=== PATIENT | male | born 1940 | race Caucasian/White ===

== ENCOUNTER 2016-10-10 11:30 | Inpatient (IN) ==
[2016-10-10 12:32] LABS: Basophils # 0.1 10*3/uL (0.0-0.2); Basophils % 1.2 % (0.0-0.8); Eosinophils # 0.3 10*3/uL (0.0-0.87); Eosinophils % 2.8 % (0.00-10.9); Hematocrit 38.8 VOL% (42.0-52.0); Hemoglobin 13.6 GM/DL (14.0-18.0); Immature Granulocytes % 0.4 %; Immature Granulocytes Absolute 0.04 #; Lymphocytes # 1.8 10*3/uL (1.4-4.0); Lymphocytes % 17.3 % (21.2-54.2); Mean Corpuscular HGB Conc 35.1 GM/DL (32-36); Mean Corpuscular Hemoglobin 38 PG (27-34); Mean Corpuscular Volume 107.5 FL (87-102); Mean Platelet Volume 10.4 FL (9.6-12.0); Monocytes # 1.4 10*3/uL (0.11-0.8); Monocytes % 13.1 % (1.7-12.7); Neutrophils # 6.8 10*3/uL (1.4-7.4); Neutrophils % 65.2 % (38.7-73.9); Platelet Count 269 T/CUMM (130-400); Red Blood Count 3.61 MC/CUMM (3.8-5.5); Red Cell Distribution Width 15.6 % (9.3-17.3); White Blood Count 10.4 T/CUMM (4-12)
--- NOTE | 2016-10-10 12:33 | Emergency Department Note ---
Arrival - Arrival Chief Complaint: Urogenital - Male Stated Complaint: SOB,jaundice ED Nursing Triage Note: pt ambulatory to triage with c/o having dark brown urine and jaundice skin color. pt was sent over from [facility] office to get checked out. 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 Mode of Arrival: Ambulatory Limitations: No Limitations Source: Patient Time Seen by Provider: 10/10/16 12:23 - History of Present Illness HPI Narrative: This is a 76-year-old white male who is complaining of having dark colored urine and a change in skin color for approximately 4 weeks. The patient admits to a long history of alcohol use. He also states that his abdomen is more swollen than usual. He denies any fevers, dysuria, nausea/vomiting/diarrhea or any pain. Onset (ago): week(s) Consistency: constant (4) Severity: moderate Allergies/Adverse Reactions: Allergies Allergy/AdvReac Type Severity Reaction Status Date / Time No Known Allergies Allergy Verified 10/10/16 11:42 Home Medications: Home Medications Medication Instructions Recorded Confirmed Type Aspirin [Ecotrin] 81 mg PO DAILY 08/09/15 08/09/15 History Carvedilol Cr [Coreg CR] 10 mg PO DAILY 08/09/15 08/09/15 History Dronedarone [Multaq] 400 mg PO BID 08/09/15 08/09/15 History Lipase/Protease/Amylase [Creon 12,000 unit PO TID 08/09/15 08/09/15 History 12,000 Units] Omeprazole [Prilosec] 20 mg PO DAILY 08/09/15 08/09/15 History Simethicone [Gas-X] 125 mg PO BID 08/09/15 08/09/15 History Topiramate 25 mg PO BID 08/09/15 08/09/15 History Review of System - Review of System 12 point system: reviewed and no additional remarkable complaints except as stated - Review of System Constitutional: Present: as per HPI. Absent: fever Eyes: Present: as per HPI Gastrointestinal: Present: as per HPI Skin: Present: as per HPI Medical,Surgical,& Family Hx - Medical History Cardio: History of: Cardiac Dysrhythmia (irregular heart beat), Hypertension - Surgical History Abdominal Surgeries: Surgical HX of: Abdominal Surgery (benign pancreatic cyst removed) Orthopedic Surgeries: Surgical HX of;: Total Hip Replacement (left) - Social History Smoking Status: Former smoker Frequency of Alcohol Use: Frequently Type of Drug Use: None Exam Physical Examination: - General General appearance: [alert, in moderate distress] - Head Head exam: [Present: atraumatic, normocephalic, normal inspection] - Eye Eye exam: [Present: Bilateral icteric sclera, PERRL, EOMI] - ENT ENT exam: [Present: normal exam, normal oropharynx, mucous membranes moist, TM' s normal bilaterally, normal external ear exam] - Neck Neck exam: [Present: normal inspection, full ROM, trachea midline] - Chest Chest inspection: [Present: normal inspection, symmetric chest wall rise] - Respiratory Respiratory exam: [Present: normal lung sounds bilaterally] - Cardiovascular Cardiovascular exam: [Present: regular rate, normal rhythm, normal heart sounds] - Abdominal Exam Abdominal exam: [Present: soft, normal bowel sounds] - Extremities Exam Extremities exam: [Present: normal inspection, full ROM] - Back Exam Back exam: [Present: normal inspection, full ROM] - Neurological Exam Neurological exam: [Present: alert, oriented X3] - Psychiatric Psychiatric exam: [Present: normal affect, normal mood] - Skin Skin exam: [Present: warm, dry, intact, mild to moderate jaundice] Vital Signs: Vital Signs Temperature 98.1 F 10/10/16 12:06 Pulse Rate 73 10/10/16 13:40 Respiratory Rate 18 10/10/16 13:40 Blood Pressure 137/75 10/10/16 13:40 O2 Sat by Pulse Oximetry 96 10/10/16 11:39 Course - Reevaluation(s) Reevaluation #1: Alejandra from hospitalist services is here to see the patient Time: 15:30 - Consultations Consultation #1: I spoke with Alejandra and hospitalist services, they will be down to see the patient in nonurgent. Time: 14:29 Results - Labs CBC & BMP: 10/10/16 12:18 10/10/16 12:18 Lab Results: I have reviewed the patients labs - Diagnostic Findings Procedure: CT Abdomen and Pelvis: image reviewed by me, report reviewed by me ( Moderate ascites noted in the abdomen) Disposition Clinical Impression: Ascites, Jaundice Case discussed with: patient Disposition: Still a Patient Condition: Stable Time of Disposition: 16:18
[2016-10-10 12:48] LABS: Lactic Acid 2.8 MMOL/L (0.4-2.0)
[2016-10-10 12:58] LABS: Apearance,Urine CLOUDY (Clear); Blood, Urine Negative (Negative); Glucose,Urine (UA) 50 mg/dL (Negative); Ketones,Urine Negative (Negative); Mucus,Urine Moderate /LPF (Occasional); Nitrite,Urine Negative (Negative); Protein,Urine 30 MG/DL; Squamous Epithelial Cell,Urine Occasional /HPF (0-10); Urine Color Amber (Yellow); WBC,Urine 30 /HPF (0-6)
[2016-10-10 13:00] LABS: Bilirubin,Urine Moderate mg/dL (Negative)
[2016-10-10 13:05] LABS: Alanine Aminotransferase 43 U/L (16-61); Albumin 1.8 G/DL (3.4-5.0); Alkaline Phosphatase 123 U/L (45-117); Aspartate Amino Transferase 104 U/L (0-37); Blood Urea Nitrogen 9 MG/DL (7-18); Calcium 8.8 MG/DL (8.5-10.1); Glucose 124 MG/DL (74-106); Osmolality,Calculated 276.5 MOS/KG (273-304); Sodium 139 MMOL/L (136-145); Total Protein 6.3 G/DL (6.4-8.3)
[2016-10-10] MEDS: SODIUM CHLORIDE 0.9% 1,000 ML IV SCH ×2 (13:06→19:30)
--- NOTE | 2016-10-10 13:15 | XRay Report ---
2 view abdomen. Indication: Abdominal pain and swelling. The heart is normal in size. The lung bases are clear. Surgical clips are noted in the upper abdomen. Suspected left renal calcification, about 4 mm. Left hip replacement. There is scoliosis and degenerative change present within the spinal column. This liver is probably upper limits of normal in size. The bowel gas pattern is normal. There are a few scattered air-fluid levels, nonspecific. Impression: Few scattered air-fluid levels result in a nonspecific bowel gas pattern. Possible left nephrolithiasis. PROCEDURE INTERPRETED AT [facility] DEPARTMENT OF RADIOLOGY Final Report Signed by: Dr. Dana Cosby
--- NOTE | 2016-10-10 14:06 | CT Report ---
CT abdomen pelvis w con Indication: Ascites, abdominal pain, jaundice Comparison: None prior CT abdomen pelvis 6:30 09/04/2012 Technique: CT of the abdomen and pelvis was performed following administration of intravenous contrast. Coronal and sagittal reformatted images were additionally created and submitted for review. The total DLP is 1812 mGy*cm. Dose reduction: This CT exam was performed using one or more of the following dose reduction techniques: Automated exposure control, automated adjustment of the mA and/or KV according to patient size, or use of iterative reconstruction technique. Findings: Minimal posterior basilar atelectatic changes are noted. There is no pleural or pericardial effusion. ABDOMEN: Liver/Gallbladder: Diffuse hypodensity is suggested throughout the hepatic parenchyma. No abnormal focal hepatic lesions are identified. There is no intrahepatic biliary ductal dilatation. The common bile duct is not well visualized. There are cholecystectomy clips noted. There is moderate perihepatic ascites noted. Vein is patent. Spleen: Spleen is small in size but otherwise appears unremarkable. Pancreas: Postsurgical changes are suggested near the pancreatic head/uncinate process with multiple surgical demarcus visualized. There is an area of nonspecific soft tissue fullness near the pancreatic head neck junction measuring up to 3 x 2.6 cm on the axial images (axial image 49), which is of uncertain significance. There is also mild diffuse pancreatic ductal dilatation measuring up to 3-4 mm. Adrenals: Within normal limits in appearance. Kidneys: Both kidneys enhance symmetrically with no evidence of obstructive uropathy. There is excretion of contrast from both kidneys on delayed images. Bowel/mesentery: Small bowel is nondilated. There is moderate ascites throughout the abdomen. There is no free air identified. Moderate stool is also noted throughout the colon which is otherwise nondilated and otherwise within normal limits. Retroperitoneum: No evidence of aortic aneurysm or significant retroperitoneal adenopathy. PELVIS: Free fluid is noted within the dependent pelvis. The bladder is not well distended and otherwise poorly evaluated. Streak artifact from left to laboratory plasty metallic hardware limits evaluation. Prostate is enlarged measuring up to 5 cm in the transaxial dimension. No definite adenopathy is identified within the pelvis. BONES: No acute or suspicious osseous abnormalities are identified. Multilevel degenerative changes noted within the lower thoracic and lumbar spine including disc space loss with vacuum disc phenomenon and endplate sclerosis. There is also moderate facet arthropathy with extends from L3-L4 through L5-S1. IMPRESSION: 1. Diffuse ascites and suggestion of post surgical changes near the pancreatic head/uncinate process. Correlate with surgical history. 2. Suspected postsurgical changes near the pancreatic head neck junction with a residual 3 x 2.6 cm area of soft tissue fullness which is nonspecific. Findings may represent postsurgical changes/scarring or neoplasm. 3. Moderate ascites throughout the abdomen/pelvis. Prior cholecystectomy. 4. Prostatomegaly. 10/10/2016 1:50 PM PROCEDURE INTERPRETED AT [facility] DEPARTMENT OF RADIOLOGY Final Report Signed by: Kenton Merida
--- NOTE | 2016-10-10 16:16 | Hospitalist History & Physical ---
Assessment and Plan - Time spent with patient Time spent with patient: Greater than 30 minutes (1) Ascites Status: Acute Assessment and plan: Admit to Hospitalist services. A.m. Labs. Blood cultures. Paracentensis. Antibiotics. Continue home medications. PRN pain management. Consult GI in a.m. Current Visit: Yes History of Present Illness Chief complaint: dark urine, jaundice, SOB History of present illness: Mr. Avila is a very pleasant 76 year old white male presented to [facility] non-urgent unit for c/o a month of dark colored urine that became worse in the last 2 weeks, as well as change in skin color (jaundice), and fatigue. Patient reports that his abdomen is more swollen than usual in the past 3 or 4 days. Patient admits to long history of alcohol use. He denies fever, chills, nausea, vomiting or diarrhea. Denies any blood in stool, denies dark stools, patient verbalizes that he has normal bowel movements each day. Medical history: Hypertension. Pancreatic tumor removed x2 (benign) Home Medications Medication Instructions Recorded Confirmed Type Aspirin [Ecotrin] 81 mg PO DAILY 08/09/15 08/09/15 History Carvedilol Cr [Coreg CR] 10 mg PO DAILY 08/09/15 08/09/15 History Dronedarone [Multaq] 400 mg PO BID 08/09/15 08/09/15 History Lipase/Protease/Amylase [Creon 12,000 unit PO TID 08/09/15 08/09/15 History 12,000 Units] Omeprazole [Prilosec] 20 mg PO DAILY 08/09/15 08/09/15 History Simethicone [Gas-X] 125 mg PO BID 08/09/15 08/09/15 History Topiramate 25 mg PO BID 08/09/15 08/09/15 History Allergies Allergy/AdvReac Type Severity Reaction Status Date / Time No Known Allergies Allergy Verified 10/10/16 11:42 Medical,Surgical,& Family Hx - Medical History Cardio: History of: Cardiac Dysrhythmia (irregular heart beat), Hypertension - Surgical History Abdominal Surgeries: Surgical HX of: Abdominal Surgery (benign pancreatic cyst removed) Orthopedic Surgeries: Surgical HX of;: Total Hip Replacement (left) - Social History Smoking Status: Former smoker Frequency of Alcohol Use: Frequently Type of Drug Use: None Review of systems: ROS completed and pertinent negative and positives in HPI. Exam - Constitutional Vitals: Period Temp Pulse Resp BP Sys/Miller Pulse Ox Last 24 Hr 98.1 F-98.1 F 68-73 17-18 137-142/75-83 96 General appearance: normal weight, no acute distress - Head Head exam: Present: normal inspection - Eye Eye exam: Present: EOMI, other (bilateral icteric sclera) Pupils: Present: REY - Neck Neck exam: Present: normal inspection - Respiratory Respiratory exam: Present: clear to auscultation bilaterally - Cardiovascular Cardiovascular exam: Present: regular rate and rhythm - GI/Abdominal GI/Abdominal exam: Present: distended, hypoactive bowel sounds, tenderness ( generalized tenderness across abdomen mid-line), soft. Absent: firm, guarding, rebound - Extremities Exam Extremities exam: Present: full ROM. Absent: edema - Neurological Exam Neurological exam: Present: alert, oriented X3 - Psychiatric Psychiatric exam: Present: normal affect, normal mood - Skin Skin exam: Present: warm, dry. Absent: normal color (jaundice) Results - Labs CBC & BMP: 10/10/16 12:18 10/10/16 12:18 Lab Results: I have reviewed the past 24 hour labs - Diagnostic Findings Procedure: CT Abdomen and Pelvis: report reviewed by me (diffuse ascites, suggestion of postsurgical changes near the pancreatic head/uncinate process, correlate with surgical history, moderate ascites throughout the abdomen/pelvis , prostatemegaly; suspected postsurgical changes near pancreatic head neck junction with residual 3x2.6 cm area of soft tissue fullness which nonspecific) , X-ray: report reviewed by me (few scattered air-fluid levels result in a nonspecific bowel gas pattern, possible left nephrolithiis)
[2016-10-10] MEDS ORDERED: MORPHINE 2 MG/1 ML SYRINGE IV PRN (16:23)
[2016-10-10] MEDS ORDERED: BISACODYL 5 MG TABLET PO PRN (16:23)
[2016-10-10] MEDS ORDERED: ONDANSETRON 4 MG/2 ML VIAL IV PRN (16:23)
[2016-10-10] MEDS ORDERED: ACETAMINOPHEN 325 MG TABLET PO PRN (16:23)
[2016-10-10] MEDS: CIPROFLOXACIN INJ 400 MG in PREMIX 1 EACH IV SCH (19:36)
[2016-10-10] MEDS: ALBUTEROL/IPRATROPIUM 3 ML NEB RESP TX SCH (20:04)
[2016-10-10] MEDS: TOPIRAMATE 25 MG TABLET PO SCH (21:55)
[2016-10-10] MEDS: DRONEDARONE 400 MG TABLET PO SCH (21:55)
[2016-10-10] MEDS: SIMETHICONE CHEW 125 MG TABLET PO SCH (21:55)
[2016-10-11 06:16] LABS: Basophils # 0.1 10*3/uL (0.0-0.2); Basophils % 1.3 % (0.0-0.8); Eosinophils # 0.3 10*3/uL (0.0-0.87); Eosinophils % 3.7 % (0.00-10.9); Hematocrit 33.1 VOL% (42.0-52.0); Hemoglobin 11.5 GM/DL (14.0-18.0); Immature Granulocytes % 0.5 %; Immature Granulocytes Absolute 0.05 #; Lymphocytes # 1.4 10*3/uL (1.4-4.0); Lymphocytes % 15.2 % (21.2-54.2); Mean Corpuscular HGB Conc 34.7 GM/DL (32-36); Mean Corpuscular Hemoglobin 37 PG (27-34); Mean Corpuscular Volume 106.4 FL (87-102); Mean Platelet Volume 10.9 FL (9.6-12.0); Monocytes # 1.1 10*3/uL (0.11-0.8); Monocytes % 12.2 % (1.7-12.7); Neutrophils # 6.2 10*3/uL (1.4-7.4); Neutrophils % 67.1 % (38.7-73.9); Platelet Count 215 T/CUMM (130-400); Red Blood Count 3.11 MC/CUMM (3.8-5.5); Red Cell Distribution Width 15.7 % (9.3-17.3); White Blood Count 9.2 T/CUMM (4-12)
[2016-10-11 06:20] LABS: INR 2.2
[2016-10-11 06:21] LABS: PT Patient Result 24.1 SECS
[2016-10-11] MEDS: CIPROFLOXACIN INJ 400 MG in PREMIX 1 EACH IV SCH ×2 (06:24→17:27)
[2016-10-11] MEDS: SODIUM CHLORIDE 0.9% 1,000 ML IV SCH ×3 (06:24→21:30)
[2016-10-11] MEDS: ALBUTEROL/IPRATROPIUM 3 ML NEB RESP TX SCH ×3 (06:40→19:42)
[2016-10-11 06:41] LABS: Albumin 1.4 G/DL (3.4-5.0); Calcium 7.8 MG/DL (8.5-10.1); Osmolality,Calculated 277.3 MOS/KG (273-304); Potassium 4.3 MMOL/L (3.5-5.1); Total Protein 5.1 G/DL (6.4-8.3)
[2016-10-11 06:43] LABS: Bilirubin,Total 15.4 MG/DL (0.2-1.0)
--- NOTE | 2016-10-11 10:39 | Hospitalist Progress Note ---
Assessment and Plan (1) Jaundice Status: Acute Assessment and plan: Patient has a remote history of pancreatic growth which was removed surgically at [facility]. He currently appears to have obstructive change at the head of the pancreas. With substantial elevation of his total bilirubin however his alkaline phosphatase is minimally elevated and transaminase elevations are only minimal as well. A substantial synthetic defect is present with hypoalbuminemia and a pro time of 24.1 seconds. Aspiration of the described ascitic fluid has been requested. Current Visit: Yes (2) Atrial arrhythmia Status: Chronic Assessment and plan: Previous EKG demonstrating junctional premature depolarizations. Chronic use of antiarrhythmic therapy and beta blockade. Current Visit: Yes (3) Alcohol abuse Status: Chronic Assessment and plan: Abstinent 4 weeks Current Visit: Yes Hospitalist: Subjective Interval history: 76-year-old male history of chronic alcohol use with apparent pancreatic problems addressed surgically at [facility] about 4 5 years ago. Patient continued to drink up until 4 weeks ago when he developed problems with marked anorexia and early satiety. He presented to the emergency room with significant jaundice with CT scan showing postop changes in the abdomen/pancreatic area with abdominal ascites. Also described is soft tissue fullness at the pancreatic head 3 x 26 cm. There is no biliary duct dilatation but the pancreatic ducts are dilated mildly. His laboratory work demonstrated severe hypo-oncotic state prolonged INR on no blood thinners and a total bilirubin of greater than 20. He denies any nausea or vomiting no diarrhea. He has not had previous episodes of ascites by his description. The patient had been treated for hypertension but he discontinued the medications at the same time that he discontinued alcohol consumption and began to become anorexic his blood pressure is been subsequently stable. He is chronically maintained on low-dose beta-adry and Multitaq for presumed atrial fibrillation (ECG 2016 showed only junctional premature depolarizations). During a 2016 admission for weakness the patient was found to have a slight elevation of his TSH level. He apparently has not used any thyroid replacement in the past. Exam - Constitutional Vitals: Period Temp Pulse Resp BP Sys/Miller Pulse Ox Last 24 Hr 97.1 F-98.4 F 67-83 16-20 111-160/61-88 96-100 General appearance: normal weight, no acute distress - Respiratory Respiratory exam: Present: clear to auscultation bilaterally. Absent: rales, rhonchi, wheezes - Cardiovascular Cardiovascular exam: Present: regular rate and rhythm - GI/Abdominal GI/Abdominal exam: Present: normal bowel sounds, ascites. Absent: mass, tenderness - Extremities Exam Extremities exam: Absent: edema - Neurological Exam Neurological exam: Present: alert, oriented X3 Results - Labs CBC & BMP: 10/11/16 05:53 10/11/16 05:53 Labs: Magnesium 2.6 Albumin 1.4 INR 2.2 Total bilirubin 15.4
[2016-10-11 11:05] LABS: Free T4 (Free Thyroxine) 1.72 NG/DL (0.76-1.46); Thyroid Stimulating Hormone 6.51 uIU/ml (0.358-3.74)
--- NOTE | 2016-10-11 12:08 | EKG Report ---
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
[2016-10-11] MEDS: DRONEDARONE 400 MG TABLET PO SCH ×2 (15:03→21:11)
[2016-10-11] MEDS: PANTOPRAZOLE 40 MG TABLET PO SCH (15:03)
[2016-10-11] MEDS: TOPIRAMATE 25 MG TABLET PO SCH ×2 (15:03→21:09)
[2016-10-11] MEDS: SIMETHICONE CHEW 125 MG TABLET PO SCH (15:03)
[2016-10-11] MEDS: CARVEDILOL CR 10 MG CAPSULE PO SCH (15:06)
--- NOTE | 2016-10-11 16:06 | Ultrasound Report ---
US paracentesis abd w/image Indication: Refractory ascites. Jaundice. Ultrasound-guided paracentesis Description: A formal timeout was performed. Maximum sterile barrier technique was used. The left lower quadrant was prepped and draped in sterile fashion. Under sonographic guidance, a 6 [place] pigtail catheter was advanced into the ascites using trocar technique. A captured sonographic image documents needle position. The needle was removed. Through the catheter, we obtained a total of 2600 cc of clear but bilious colored ascites. No additional fluid could be obtained. Therefore, the catheter was removed. A bandage was placed at the puncture site. The patient tolerated the procedure well. Impression: Ultrasound-guided paracentesis. PROCEDURE INTERPRETED AT [facility] DEPARTMENT OF RADIOLOGY Final Report Signed by: Paulie Osuna M.D.
--- NOTE | 2016-10-11 16:06 | XRay Report ---
Exam: XR chest 2V Date: 10/11/2016 10:57 AM Indication: Ascites Comparison: 08/09/2015 Technical:PA lateral Findings: Previous cervical fusion with titanium plate and screws. Degenerative change present thoracic spine. Underlying granuloma changes are present. Minimal blunting left costophrenic angle suggest tiny effusion. Mediastinum is intact. ASVD is present. Impression: 1. Tiny left base pleural effusion 2. Degenerative spondylosis change thoracic spine 3. Prior cervical fusion. PROCEDURE INTERPRETED AT [facility] DEPARTMENT OF RADIOLOGY Final Report Signed by: Dr. Chu Mendez
--- NOTE | 2016-10-11 18:57 | Gastrointestinal Consult Note ---
Assessment and Plan (1) Jaundice Status: Acute Assessment and plan: This patient does not have any ductal dilatation on CT scan. The common bile duct was not well-seen and I want to double check that this is not dilated as well. Given his abnormal ductal anatomy with prior history of pancreatic cyst removal will ask for MRCP. If no ductal dilatation is noted tomorrow and liver function tests are improving will likely hold off on biopsy of the liver. Awaiting to see whether the alpha-fetoprotein level demonstrates infiltration of the liver with hepatocellular carcinoma although this would have been seen by as a liver mass typically. If there is diffuse process involving the liver such as amyloid this can also produce jaundice. I have ordered hepatitis A, B, and C panel as exposure to hepatitis A can certainly results in jaundice as could exposure to other hepatitis types given this patient's poor functioning with his alcoholism and cirrhosis. We may end up having to do a liver biopsy but will await these studies first and confirm that there is no ductal dilatation with the MRCP. Current Visit: Yes (2) Alcoholic cirrhosis of liver with ascites Status: Acute Assessment and plan: This patient has an elevated MCV consistent with his underlying cirrhosis and alcohol use until recently. I believe that he was clearly minimizing the amount of alcohol he is drinking characterizing this is only 8 drinks per day and discontinued some 1 month ago. With simple improvement of his nutrition his bilirubin is actually already come down from 20 mg/dL down to 15 and I expect with better nutrition this may improve rapidly as well. He likely has a starvation component and difficulty with clearing the bilirubin as a result of lack of nutrition. There is no elevated white blood cell count and I do not believe the septic cholestasis, we are looking for hemochromatosis, alpha-1 antitrypsin deficiency, viral hepatitis and autoimmune hepatitis as well. Current Visit: Yes (3) Secondary pancreatic insufficiency Status: Acute Assessment and plan: This was diagnosis Dr. Narayanan made some time ago and place the patient on Creon patient was last given this medication from our clinic back in 2010. Apparently he takes suboptimal doses of this should likely be on at least 3 times as much as he currently takes. This would usually present with diarrhea and malabsorption and so we will continue to watch him as he improves his p.o. intake. Current Visit: Yes (4) Macrocytic anemia Status: Acute Assessment and plan: This finding probably has a variety of etiologies some secondary to the alcohol intake but also some from nutritional losses and perhaps from removal of some of the stomach resulting in a B12 deficiency. Will check B12 levels now for confirmation. We may initiate parenteral shots if needed. Current Visit: Yes History of Present Illness Chief complaint: Jaundice, alcoholic hepatitis, cirrhosis with ascites History of present illness: Mr. Avila is a 76 year old male who has a history of alcoholism previously followed by Dr. Narayanan in the past. This patient also has a history of pseudocysts and pancreatic insufficiency also followed at [facility] for this and it undergone a resection of 2 cysts approximately 5 years ago, the larger of these was 3.2 cm, according to the patient "golf ball sized". As a result of the surgery he discontinued drinking for approximately 2 years but over the last 3 months he has been hitting the bottle fairly heavily "because I was bored", and states that he has been drinking approximately 6-8 ounces of bourbon per day over at [employer]. He is started to notice his urine turning dark approximately 5 weeks ago at his skin starting to turn yellow approximately 4 weeks ago and discontinued drinking approximately a month ago as a result of his yellow skin. His skin has continued to turn yellow and his appetite has been very poor. He does not claim to have had any diarrhea or constipation. When asked about his Creon use he states that he only takes 1 pill per day as opposed to 1 pill 3 times daily. He does not have any blood in his urine no black tarry bowel movements. He does not have any significant abdominal pain. States that post paracentesis he was able to eat first good meal in quite a while. Dr. Osuna was able to recently removed 2.6 L of ascitic fluid. CT scan of the abdomen failed to show any ductal dilatation other slight pancreatic ductal dilatation seen. Does feel fairly amount of fatigue and pruritus as a result of a high bilirubin previously up to 20.2 now down to 15.4 , this is not been fractionated out. Lipase level is normal at 42. The ALT and AST are 104 and 43 respectively with a alkaline phosphatase of 123 and total protein albumin is 6.3 and 1.8 initially this latter has dropped down to 5.1 and 1.4. Notably the patient's white blood cell count is not increased currently 9.2 his MCV is elevated in keeping with his cirrhosis with an MCV of 107.5. His hematocrit is dropped with hydration down to 33.1 with hemoglobin of 11.5. CT scan as previously noted above shows a residual 3 x 2.6 area of soft tissue fullness nonspecific at the pancreatic head and moderate ascites as well as prostatomegaly, DJD of the spine is also noted. Surprisingly there are no masses within the liver. No intrahepatic ductal dilatation and the common bile duct was not well-visualized. The patient's PT/INR are 24.1 and 2.2 respectively. This patient has also follow-up with Dr. Michael dubose at [facility] in the past. His last colonoscopy was done by Elia tyler on 07/30/13 at which time no polyps were seen and sigmoid/descending diverticulosis was visualized. An upper endoscopy was done again by Elia Rodriguez on 07/29/13 with biopsies of the duodenum from the efferent limb and stomach biopsies both of which were found to be normal. 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 Home Medications Medication Instructions Recorded Confirmed Type Aspirin [Ecotrin] 81 mg PO DAILY 08/09/15 10/11/16 History Omeprazole [Prilosec] 20 mg PO DAILY 08/09/15 10/11/16 History Topiramate 1 - 2 tablet PO BEDTIME 08/09/15 10/11/16 History Carvedilol [Carvedilol] 3.125 mg PO BID 10/11/16 10/11/16 History Clorazepate [Tranxene] 15 mg PO TID PRN 10/11/16 10/11/16 History Docusate/Senna 50-8.6 [Senokot S] 1 tablet PO DAILY 10/11/16 10/11/16 History Fexofenadine [Sue] 180 mg PO DAILY PRN 10/11/16 10/11/16 History Multivitamin (Centrum) [Centrum 1 tablet PO DAILY 10/11/16 10/11/16 History Tab] [place]-3S/Dha/Epa/Fish Oil [Fish 1 each PO DAILY 10/11/16 10/11/16 History Oil 1,200 mg Softgel] Polycarbophil [Fibercon] 1,250 mg PO DAILY 10/11/16 10/11/16 History Prevagen 1 capsule PO DAILY 10/11/16 10/11/16 History Sucralfate [Sucralfate] 1 gm PO QID 10/11/16 10/11/16 History Super Beta Prostate 1 capsule PO DAILY 10/11/16 10/11/16 History Allergies Allergy/AdvReac Type Severity Reaction Status Date / Time No Known Allergies Allergy Verified 10/10/16 11:42 Medical,Surgical,& Family Hx - Medical History Cardio: History of: Cardiac Dysrhythmia (irregular heart beat), Hypertension - Surgical History Abdominal Surgeries: Surgical HX of: Abdominal Surgery (benign pancreatic cyst removed) Orthopedic Surgeries: Surgical HX of;: Total Hip Replacement (left) - Social History Smoking Status: Former smoker Frequency of Alcohol Use: Frequently Type of Drug Use: None Review of systems: Constitutional: Denies fever, chills, but positive for recent nausea, and vomiting Eyes: Denies dry eyes, but the patient does have significant scleral icterus HENT: Denies headaches Cardiovascular: Denies acute chest pain and claudication Respiratory: He does admit to some recent shortness of breath, wheezing, and difficulty breathing, denies cough Gastrointestinal: As noted in the HPI Genitourinary: Denies dysuria and hematuria Neurologic: Denies vision loss, and loss of sensation Musculoskeletal: He does admit to some joint swelling, joint stiffness, and muscular weakness Psychiatric: The patient does have alcoholism as well as depression but no meka symptoms Heme-Lymph: He does have some easy bruising, lymph node enlargement or tenderness, night sweats, excessive bleeding Allergies-immunologic: He does admit to pruritus but no rhinorrhea Exam - Constitutional Vitals: Period Temp Pulse Resp BP Sys/Miller Pulse Ox Last 24 Hr 97.3 F-98.4 F 67-83 15-20 111-162/61-84 94-100 General appearance: no acute distress, other (The patient's skin appears frankly jaundiced) - Head Head exam: Present: normocephalic - Eye Eye exam: Present: EOMI, scleral icterus - ENT ENT exam: Present: normal exam - Respiratory Respiratory exam: Present: clear to auscultation bilaterally, wheezes. Absent: rhonchi, stridor - Cardiovascular Cardiovascular exam: Present: regular rate and rhythm - GI/Abdominal GI/Abdominal exam: Present: normal bowel sounds, soft. Absent: distended, guarding, tenderness, rebound - Extremities Exam Extremities exam: Absent: edema - Neurological Exam Neurological exam: Present: alert, oriented X3, CN II-XII intact - Psychiatric Psychiatric exam: Present: normal affect, normal mood - Skin Skin exam: Present: warm, other (jaundiced) Results - Labs CBC & BMP: 10/11/16 13:48 10/11/16 05:53
[2016-10-11] MEDS: COLESTIPOL 1 GM TABLET PO SCH (21:09)
[2016-10-11] MEDS: POLYETHYLENE GLYCOL POWDER 17 GM PACK PO SCH (21:18)
[2016-10-12] MEDS: CIPROFLOXACIN INJ 400 MG in PREMIX 1 EACH IV SCH ×2 (05:25→17:56)
[2016-10-12] MEDS: SODIUM CHLORIDE 0.9% 1,000 ML IV SCH ×2 (05:28→17:56)
[2016-10-12 05:42] LABS: Albumin 1.3 G/DL (3.4-5.0); Calcium 7.9 MG/DL (8.5-10.1); Osmolality,Calculated 279.1 MOS/KG (273-304); Total Protein 4.9 G/DL (6.4-8.3)
[2016-10-12 05:43] LABS: Albumin 1.3 G/DL (3.4-5.0); Bilirubin,Direct 11.7 MG/DL (0.0-0.20); Bilirubin,Indirect 3.2 MG/DL (0.0-1.0); Total Protein 4.8 G/DL (6.4-8.3)
[2016-10-12 05:54] LABS: Bilirubin,Total 14.7 MG/DL (0.2-1.0)
[2016-10-12 05:56] LABS: Bilirubin,Total 14.9 MG/DL (0.2-1.0)
[2016-10-12 06:11] LABS: % Iron Saturation 87.9 % (18-50)
--- NOTE | 2016-10-12 06:29 | Gastrointestinal Progress Note ---
Assessment and Plan (1) Jaundice Status: Acute Assessment and plan: This patient does not have any ductal dilatation on CT scan. The common bile duct was not well-seen and I want to double check that this is not dilated as well. Given his abnormal ductal anatomy with prior history of pancreatic cyst removal will ask for MRCP. If no ductal dilatation is noted tomorrow and liver function tests are improving will likely hold off on biopsy of the liver. Awaiting to see whether the alpha-fetoprotein level demonstrates infiltration of the liver with hepatocellular carcinoma although this would have been seen by as a liver mass typically. If there is diffuse process involving the liver such as amyloid this can also produce jaundice. I have ordered hepatitis A, B, and C panel as exposure to hepatitis A can certainly results in jaundice as could exposure to other hepatitis types given this patient's poor functioning with his alcoholism and cirrhosis. We may end up having to do a liver biopsy but will await these studies first and confirm that there is no ductal dilatation with the MRCP. 10/12/16--The patient had some laboratories done yesterday. Although this is likely to be alcoholic cirrhosis and was not sure there was no complicating secondary process involved. Bilirubin is down from 20.2-->14.9 with normalization of the alkaline phosphatase and a direct bilirubin of 11.7. With hydration the albumin is down to 1.3. INR is 2.2, these numbers along with the serum sodium of 142 and a creatinine 1.0 yields a meld score currently of 25. Recall that this patient would need to be abstinent from alcohol for 6 months to be considered for liver transplant. MRCP is pending for today to further define ductal anatomy and look for the common bile duct which was not well identified on CT scan considering the high direct bilirubin fraction. Current Visit: Yes (2) Alcoholic cirrhosis of liver with ascites Status: Acute Assessment and plan: This patient has an elevated MCV consistent with his underlying cirrhosis and alcohol use until recently. I believe that he was clearly minimizing the amount of alcohol he is drinking characterizing this is only 8 drinks per day and discontinued some 1 month ago. With simple improvement of his nutrition his bilirubin is actually already come down from 20 mg/dL down to 15 and I expect with better nutrition this may improve rapidly as well. He likely has a starvation component and difficulty with clearing the bilirubin as a result of lack of nutrition. There is no elevated white blood cell count and I do not believe the septic cholestasis, we are looking for hemochromatosis, alpha-1 antitrypsin deficiency, viral hepatitis and autoimmune hepatitis as well. 10/12/16--this patient does not appear to have hemochromatosis, the rest of these laboratories are pending. He should continue to eat to replace his albumin. If he becomes quite edematous I might consider an albumin infusion at least in the short-term. We also need to consider doing a liver biopsy depending on the results of the MRCP. He might benefit from fresh frozen plasma prior to the biopsy if he requires one, I will try some vitamin K to see if this corrects him first. Current Visit: Yes (3) Secondary pancreatic insufficiency Status: Acute Assessment and plan: This was diagnosis Dr. Narayanan made some time ago and place the patient on Creon patient was last given this medication from our clinic back in 2010. Apparently he takes suboptimal doses of this should likely be on at least 3 times as much as he currently takes. This would usually present with diarrhea and malabsorption and so we will continue to watch him as he improves his p.o. intake. 10/12/16--if this patient develops diarrhea with his meals will likely add some pancreatolipase to his regimen. It would not surprise me if he had food malabsorption as this was 1 of his symptoms when he saw Dr. Narayanan in the past in 2010. Current Visit: Yes (4) Macrocytic anemia Status: Acute Assessment and plan: This finding probably has a variety of etiologies some secondary to the alcohol intake but also some from nutritional losses and perhaps from removal of some of the stomach resulting in a B12 deficiency. Will check B12 levels now for confirmation. We may initiate parenteral shots if needed. 10/12/16--The patient's B12 is completely normal. The macrocytosis is likely due to ethanol ingestion and probably cirrhosis. Current Visit: Yes Gastroenterology - PN: Subj Interval history: No new complaints, albumin is quite low at 1.3, I am actually surprised is not "puffier". Laboratories have come back over the evening time. This patient does not appear to that hemochromatosis, his B12 level is excellent. We are awaiting MRCP to make sure there is no ductal dilatation external to the biliary tree and further define the anatomy of the common bile duct and pancreatic ducts. 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 See my consult. Bilirubin is down to approximately a point from yesterday. Exam (Progress Note) - Constitutional Vitals: Period Temp Pulse Resp BP Sys/Miller Pulse Ox Last 24 Hr 97.3 F-98.4 F 67-83 15-20 112-162/65-84 94-100 General appearance: no acute distress - Head Head exam: Present: normocephalic - Eye Eye exam: Present: EOMI, scleral icterus - Respiratory Respiratory exam: Present: clear to auscultation bilaterally - Cardiovascular Cardiovascular exam: Present: regular rate and rhythm - GI/Abdominal GI/Abdominal exam: Present: normal bowel sounds, ascites (This is overall improved from admission status post paracentesis), soft. Absent: distended, tenderness, rebound - Extremities Exam Extremities exam: Present: edema - Neurological Exam Neurological exam: Present: alert, oriented X3 - Psychiatric Psychiatric exam: Present: normal affect, normal mood. Absent: agitated, anxious - Skin Skin exam: Present: warm Results - Labs CBC & BMP: 10/11/16 13:48 10/12/16 03:41
[2016-10-12 06:43] LABS: Hepatitis A Ab IgM Quant 0.16 Index; Hepatitis A Ab IgM Result Negative (Negative); Hepatitis B Core IgM Quant 0.15 Index; Hepatitis B Core IgM Result Negative (Negative); Hepatitis B Surface Ag Quant 0.18 Index; Hepatitis B Surface Ag Result Negative (Negative); Hepatitis C Virus Ab Quant 0.18 Index; Hepatitis C Virus Ab Result Negative (Negative)
[2016-10-12 07:02] LABS: Cancer Antigen 19-9 26.6 U/ML (0-37)
[2016-10-12 07:07] LABS: AFP Tumor 3.5 NG/ML (0-8)
[2016-10-12] MEDS: ALBUTEROL/IPRATROPIUM 3 ML NEB RESP TX SCH ×3 (07:09→19:38)
--- NOTE | 2016-10-12 08:47 | Hospitalist Progress Note ---
Assessment and Plan (1) Jaundice Status: Acute Assessment and plan: Patient has a remote history of pancreatic growth which was removed surgically at [facility]. He currently appears to have obstructive change at the head of the pancreas. With substantial elevation of his total bilirubin however his alkaline phosphatase is minimally elevated and transaminase elevations are only minimal as well. A substantial synthetic defect is present with hypoalbuminemia and a pro time of 24.1 seconds. Aspiration of the described ascitic fluid has been performed with return reassessment pending. Current Visit: Yes (2) Atrial arrhythmia Status: Chronic Assessment and plan: Previous EKG demonstrating junctional premature depolarizations. Chronic use of antiarrhythmic therapy and beta blockade. Current Visit: Yes (3) Alcohol abuse Status: Chronic Assessment and plan: Abstinent 4 weeks Current Visit: Yes Hospitalist: Subjective Interval history: 68-year-old male with a history of chronic alcohol use disorder with pancreatic problems addressed surgically at [facility]. This is apparently benign disease. The patient about 4 weeks ago developed a marked anorexia with early satiety and gave up alcohol at that time. He has no vomiting no diarrhea. He presented emergency room with significant jaundice with CT scan showing postoperative changes in the abdomen/pancreatic area with abdominal ascites. There was also described as soft tissue fullness at the head of the pancreas. There was mild dilatation of the pancreatic ducts but no biliary duct dilatation and his laboratory work showed a predominant synthetic deficit with marked elevation of his bilirubin but minimal elevation of his alkaline phosphatase. Patient has been consulted by GI medicine who recommended following up yesterday's paracentesis with an MRCP to assist further the biliary ductal system. Patient' s vital signs were stable overnight. He is tolerating oral intake. Exam - Constitutional Vitals: Period Temp Pulse Resp BP Sys/Miller Pulse Ox Last 24 Hr 97.3 F-98.4 F 64-82 15-20 112-162/65-84 94-100 General appearance: normal weight - Respiratory Respiratory exam: Present: clear to auscultation bilaterally. Absent: rales, rhonchi, wheezes - Cardiovascular Cardiovascular exam: Present: regular rate and rhythm - GI/Abdominal GI/Abdominal exam: Present: normal bowel sounds, ascites - Extremities Exam Extremities exam: Absent: edema - Neurological Exam Neurological exam: Present: alert, oriented X3 Results - Labs CBC & BMP: 10/11/16 13:48 10/12/16 03:41 Labs: Iron 80 total iron-binding capacity 91 Total bilirubin 14.9 direct bilirubin 11.7 Albumin 1.3 TSH 6.5 free T4 1.7 - Impressions Sinus rhythm with ventricular premature depolarizations.
--- NOTE | 2016-10-12 10:51 | XRay Report ---
XR orbits for mri Clinical Information: ^MRI Clearance Comparison: None Findings: Orbits appear unremarkable. No metallic densities are identified within the orbits or periorbital soft tissues. Paranasal sinuses are predominantly clear. Impression: Negative study PROCEDURE INTERPRETED AT [facility] DEPARTMENT OF RADIOLOGY Final Report Signed by: Kenton Merida
--- NOTE | 2016-10-12 15:54 | Magnetic Resonance Report ---
Exam: MR abdomen wo/w con Date: 10/12/2016 Indication: Jaundice with elevated bilirubin Comparison: 07/26/2015. Technical 1.5 Rachel Axial sagittal and coronal imaging and 3-D maximum intensity reproduction images with and without gadolinium enhancement were obtained. The patient was given 20 cc of Dotarem. Findings: Study is slightly limited secondary to motion artifact. The MRCP imaging images or useless secondary to the ascites fluid collection which hinders the ability to use water in the common bile duct for the evaluation due to the fluid in the abdomen. The liver reveals no obvious intrahepatic ductal dilatation clearly demonstrated. No defined focal mass noted. Postcontrast images reveal no contrast enhancing lesions clearly demonstrated. The spleen is unremarkable. The adrenal glands are intact. The kidneys reveal no obvious focal abnormalities. No cyst are present with normal-appearing nephrogram function present. The gallbladder is not visualized previous cholecystectomy is present on previous studies. The pancreatic duct is slightly prominent measuring up to approximate 6 mm. This is seen in the mid body and tail of the pancreas area. The exam reveals no intrahepatic ductal dilatation. CBD is poorly seen on today's study. The portal vein is patent. The aorta and IVC are otherwise intact. Degenerative change present thoracic spine. No contrast enhancing mass is present. Low volume bilateral basilar pleural effusions are present. The stomach appears otherwise unremarkable. The bony structures and spinal canal are otherwise unremarkable. Impression: 1. Component of ascites which does hinder the evaluation of the bile duct due to the technique required to perform MRCP imaging. 2. Low-volume bilateral basal pleural effusions 3. No obvious intrahepatic ductal dilatation with some mild dilatation the pancreatic duct with previous cholecystectomy noted. 4. No defined focal mass demonstrated involving the pancreas otherwise noted. PROCEDURE INTERPRETED AT [facility] DEPARTMENT OF RADIOLOGY Final Report Signed by: Dr. Chu Mendez
[2016-10-12] MEDS ORDERED: CREON 12000 UNIT PO SCH (17:00)
[2016-10-12] MEDS: TOPIRAMATE 25 MG TABLET PO SCH ×2 (17:43→20:53)
[2016-10-12] MEDS: DRONEDARONE 400 MG TABLET PO SCH ×2 (17:43→20:53)
[2016-10-12] MEDS: CARVEDILOL CR 10 MG CAPSULE PO SCH (17:44)
[2016-10-12] MEDS: POLYETHYLENE GLYCOL POWDER 17 GM PACK PO SCH ×2 (17:54→20:55)
[2016-10-12] MEDS: COLESTIPOL 1 GM TABLET PO SCH ×2 (17:55→20:53)
[2016-10-12] MEDS: PANTOPRAZOLE 40 MG TABLET PO SCH (17:55)
--- NOTE | 2016-10-12 18:16 | Pathology Report from [facility] ---
[facility] [place] # : [id number] PATIENT NAME : Ahmet Avila ORDERING DR : CATIA RUSSO MD CLINICAL HX: Jaundice, Ascites POST-OP DX: Same SPECIMEN INFO: Fluid,Paracentesis - 1000 mls straw-colored, cloudy CLASS: I CLASS COMMENTS: Blood, inflammation, proteinaceous material, benign mesothelial cells.CELL BLOCK: Same CLASS LEGEND: CLASS 0 Material inadequate for diagnosis because of (see comment) CLASS I Absence of atypical or abnormal cells CLASS II Atypical Cytology but no evidence of malignancy CLASS III Cytology suggestive of but not conclusive for malignancy CLASS IV Cytology strongly suggestive of malignancy CLASS V Cytology conclusive for malignancy COLLECTED DATE: 10/11/2016 [facility] [place] REPORT DATE: 10/12/2016 ELECTRONICALLY SIGNED BY: Denny Vargas III, M.D. 10/12/2016 - 8:57:21 [email or web address]
[2016-10-13] MEDS: CIPROFLOXACIN INJ 400 MG in PREMIX 1 EACH IV SCH ×2 (05:36→17:10)
[2016-10-13] MEDS: SODIUM CHLORIDE 0.9% 1,000 ML IV SCH ×4 (05:38→23:27)
[2016-10-13 06:39] LABS: Albumin 1.2 G/DL (3.4-5.0); Bilirubin,Indirect 3.7 MG/DL (0.0-1.0); Total Protein 4.8 G/DL (6.4-8.3)
[2016-10-13 06:41] LABS: Bilirubin,Total 15.7 MG/DL (0.2-1.0)
[2016-10-13] MEDS: ALBUTEROL/IPRATROPIUM 3 ML NEB RESP TX SCH ×3 (06:58→19:33)
[2016-10-13] MEDS: POLYETHYLENE GLYCOL POWDER 17 GM PACK PO SCH ×2 (09:38→21:27)
[2016-10-13] MEDS: TOPIRAMATE 25 MG TABLET PO SCH ×2 (09:38→21:27)
[2016-10-13] MEDS: DRONEDARONE 400 MG TABLET PO SCH ×2 (09:39→21:27)
[2016-10-13] MEDS: COLESTIPOL 1 GM TABLET PO SCH ×2 (09:40→21:27)
[2016-10-13] MEDS: PANTOPRAZOLE 40 MG TABLET PO SCH (09:43)
[2016-10-13] MEDS: CARVEDILOL CR 10 MG CAPSULE PO SCH (09:43)
--- NOTE | 2016-10-13 19:44 | Hospitalist Progress Note ---
Assessment and Plan (1) Jaundice Status: Acute Assessment and plan: Continue to monitor liver profile, consider liver biopsy if the profile does not improve. He currently appears to have obstructive change at the head of the pancreas. With substantial elevation of his total bilirubin however his alkaline phosphatase is minimally elevated and transaminase elevations are only minimal as well. A substantial synthetic defect is present with hypoalbuminemia and a pro time of 24.1 seconds. Aspiration of the described ascitic fluid has been performed with return reassessment pending. Current Visit: Yes (2) Atrial arrhythmia Status: Chronic Assessment and plan: Continue beta-adry and Multaq. Current Visit: Yes (3) Alcohol abuse Status: Chronic Assessment and plan: Chronic problem continue to monitor for DTs. Current Visit: Yes Hospitalist: Subjective Interval history: 76 year-old male with a history of chronic alcohol use disorder with pancreatic problems addressed surgically at [facility]. This is apparently benign disease. The patient about 4 weeks ago developed a marked anorexia with early satiety and gave up alcohol at that time. He has no vomiting no diarrhea. He presented emergency room with significant jaundice with CT scan showing postoperative changes in the abdomen/pancreatic area with abdominal ascites. There was also described as soft tissue fullness at the head of the pancreas. There was mild dilatation of the pancreatic ducts but no biliary duct dilatation and his laboratory work showed a predominant synthetic deficit with marked elevation of his bilirubin but minimal elevation of his alkaline phosphatase. Patient has been consulted by GI medicine who recommended following up yesterday's paracentesis with an MRCP to assist further the biliary ductal system. Patient's vital signs were stable overnight. He is tolerating oral intake. Exam - Constitutional Vitals: Period Temp Pulse Resp BP Sys/Miller Pulse Ox Last 24 Hr 97.1 F-98.6 F 66-82 16-20 100-132/48-74 93-100 General appearance: normal weight, no acute distress - Head Head exam: Present: normal inspection, normocephalic - Eye Eye exam: Present: EOMI Pupils: Present: REY - ENT ENT exam: Present: normal exam - Neck Neck exam: Present: normal inspection - Respiratory Respiratory exam: Present: clear to auscultation bilaterally - Cardiovascular Cardiovascular exam: Present: regular rate and rhythm - GI/Abdominal GI/Abdominal exam: Present: ascites - Extremities Exam Extremities exam: Present: normal inspection, normal capillary refill - Neurological Exam Neurological exam: Present: oriented X3 - Psychiatric Psychiatric exam: Present: normal affect, normal mood - Skin Skin exam: Present: normal color, warm Results - Labs CBC & BMP: 10/11/16 13:48 10/12/16 03:41
--- NOTE | 2016-10-13 20:34 | Gastrointestinal Progress Note ---
Assessment and Plan (1) Jaundice Status: Acute Assessment and plan: This patient does not have any ductal dilatation on CT scan. The common bile duct was not well-seen and I want to double check that this is not dilated as well. Given his abnormal ductal anatomy with prior history of pancreatic cyst removal will ask for MRCP. If no ductal dilatation is noted tomorrow and liver function tests are improving will likely hold off on biopsy of the liver. Awaiting to see whether the alpha-fetoprotein level demonstrates infiltration of the liver with hepatocellular carcinoma although this would have been seen by as a liver mass typically. If there is diffuse process involving the liver such as amyloid this can also produce jaundice. I have ordered hepatitis A, B, and C panel as exposure to hepatitis A can certainly results in jaundice as could exposure to other hepatitis types given this patient's poor functioning with his alcoholism and cirrhosis. We may end up having to do a liver biopsy but will await these studies first and confirm that there is no ductal dilatation with the MRCP. 10/12/16--The patient had some laboratories done yesterday. Although this is likely to be alcoholic cirrhosis and was not sure there was no complicating secondary process involved. Bilirubin is down from 20.2-->14.9 with normalization of the alkaline phosphatase and a direct bilirubin of 11.7. With hydration the albumin is down to 1.3. INR is 2.2, these numbers along with the serum sodium of 142 and a creatinine 1.0 yields a meld score currently of 25. Recall that this patient would need to be abstinent from alcohol for 6 months to be considered for liver transplant. MRCP is pending for today to further define ductal anatomy and look for the common bile duct which was not well identified on CT scan considering the high direct bilirubin fraction. 10/13/16--patient does not have any evidence of viral hepatitis, hemochromatosis , alpha-1 antitrypsin deficiency, or autoimmune hepatitis. It will be helpful to get a liver biopsy however patient does not wish to hang around or exposed himself to the risk required to obtain this piece of tissue. Note that with his ascites this would require a transjugular liver biopsy in order to be able to accomplish. I think this would be important for excluding an infiltrative process such as amyloid and/or widely disseminated cancer/infection-- I still feel myself that this is related to the patient's earlier alcohol intake or perhaps drug exposure remains in the differential. The MRCP was not particularly helpful to look at the common bile duct but did reassure us that there was no masses within the pancreas head and liver and confirmed that there was no ductal dilatation within the liver itself. After discussion with the patient I think it is reasonable to obtain a "first available" appointment with [facility] hepatology group in order to discuss his situation. We should make available copy of his records to keep his redraws and rescan at a minimum. He could potentially be discharged tomorrow with this follow-up. Unfortunately there is little else that I have to offer. This patient does not require ERCP or stenting. He was advised to eat multiple small meals during the day and avoid salt-containing products, try and keep his protein intake to 60 g of protein or less. He might benefit from dietary teaching on this. He can also follow-up from my clinic but I would like to see with [facility] has to suggest prior to seeing him back. I have a feeling that we will see him more expeditiously if they know what his bilirubin has increased to. Current Visit: Yes (2) Alcoholic cirrhosis of liver with ascites Status: Acute Assessment and plan: This patient has an elevated MCV consistent with his underlying cirrhosis and alcohol use until recently. I believe that he was clearly minimizing the amount of alcohol he is drinking characterizing this is only 8 drinks per day and discontinued some 1 month ago. With simple improvement of his nutrition his bilirubin is actually already come down from 20 mg/dL down to 15 and I expect with better nutrition this may improve rapidly as well. He likely has a starvation component and difficulty with clearing the bilirubin as a result of lack of nutrition. There is no elevated white blood cell count and I do not believe the septic cholestasis, we are looking for hemochromatosis, alpha-1 antitrypsin deficiency, viral hepatitis and autoimmune hepatitis as well. 10/12/16--this patient does not appear to have hemochromatosis, the rest of these laboratories are pending. He should continue to eat to replace his albumin. If he becomes quite edematous I might consider an albumin infusion at least in the short-term. We also need to consider doing a liver biopsy depending on the results of the MRCP. He might benefit from fresh frozen plasma prior to the biopsy if he requires one, I will try some vitamin K to see if this corrects him first. 10/13/16--viral hepatitis titers are negative as is the MADAN. Please see above for my suggestions as far as referral to [facility]. The patient does not want to stay here and have a transjugular liver biopsy which would be the next step I would suggest. Current Visit: Yes (3) Secondary pancreatic insufficiency Status: Acute Assessment and plan: This was diagnosis Dr. Narayanan made some time ago and place the patient on Creon patient was last given this medication from our clinic back in 2010. Apparently he takes suboptimal doses of this should likely be on at least 3 times as much as he currently takes. This would usually present with diarrhea and malabsorption and so we will continue to watch him as he improves his p.o. intake. 10/12/16--if this patient develops diarrhea with his meals will likely add some pancreatolipase to his regimen. It would not surprise me if he had food malabsorption as this was 1 of his symptoms when he saw Dr. Narayanan in the past in 2010. 10/13/16--still no diarrhea but the patient is not eating much either. I would add pancreatic enzymes back the patient developed malabsorption diarrhea, with these enzymes titrated to effect. Current Visit: Yes (4) Macrocytic anemia Status: Acute Assessment and plan: This finding probably has a variety of etiologies some secondary to the alcohol intake but also some from nutritional losses and perhaps from removal of some of the stomach resulting in a B12 deficiency. Will check B12 levels now for confirmation. We may initiate parenteral shots if needed. 10/12/16--The patient's B12 is completely normal. The macrocytosis is likely due to ethanol ingestion and probably cirrhosis. 10/13/16-- suggest following this over time. Current Visit: Yes Gastroenterology - PN: Subj Interval history: The patient had some transient relief with the initial paracentesis but now feels that his fluid is returning and would like to be able to be released from the hospital. The MRCP did not show much additional information. He confirmed there was no masses within the liver or head of the pancreas and no ductal dilatation within the liver itself indicating that this is a parenchymal problem of the liver itself likely having to do with the patient's earlier cirrhosis and alcohol intake. Hepatitis A, B, and C are all negative, the patient does not appear to have hemochromatosis or alpha 1 antitrypsin deficiency or autoimmune hepatitis based on blood work. I think that he would benefit from a liver biopsy but he does not want to stay for this. He states that he would like to have an appointment with the hepatology group at [facility], and I believe this is reasonable. Exam (Progress Note) - Constitutional Vitals: Period Temp Pulse Resp BP Sys/Miller Pulse Ox Last 24 Hr 97.1 F-98.6 F 66-82 16-20 100-132/48-74 93-99 General appearance: mild distress, over weight - Head Head exam: Present: normocephalic - Eye Eye exam: Present: EOMI, scleral icterus - Respiratory Respiratory exam: Present: decreased breath sounds (In the bases bilaterally). Absent: rhonchi, stridor, wheezes - Cardiovascular Cardiovascular exam: Present: regular rate and rhythm - GI/Abdominal GI/Abdominal exam: Present: ascites, distended, tenderness (Mild diffuse tenderness), soft, other (Skin is frankly jaundiced). Absent: guarding, rebound - Extremities Exam Extremities exam: Present: edema - Neurological Exam Neurological exam: Present: alert, oriented X3, CN II-XII intact. Absent: altered - Psychiatric Psychiatric exam: Present: normal affect, normal mood - Skin Skin exam: Present: warm Results - Labs CBC & BMP: 10/11/16 13:48 10/12/16 03:41
[2016-10-14] MEDS: POLYETHYLENE GLYCOL POWDER 17 GM PACK PO SCH ×2 (00:17→08:39)
[2016-10-14 03:15] LABS: Albumin 1.4 G/DL (3.4-5.0); Osmolality,Calculated 279.3 MOS/KG (273-304); Potassium 4.3 MMOL/L (3.5-5.1); Total Protein 5.2 G/DL (6.4-8.3)
[2016-10-14 03:54] LABS: Bilirubin,Total 18.2 MG/DL (0.2-1.0)
[2016-10-14] MEDS: CIPROFLOXACIN INJ 400 MG in PREMIX 1 EACH IV SCH (05:54)
[2016-10-14] MEDS: ALBUTEROL/IPRATROPIUM 3 ML NEB RESP TX SCH ×3 (06:36→13:48)
[2016-10-14] MEDS: SODIUM CHLORIDE 0.9% 1,000 ML IV SCH (06:37)
[2016-10-14] MEDS: DRONEDARONE 400 MG TABLET PO SCH (08:35)
[2016-10-14] MEDS: COLESTIPOL 1 GM TABLET PO SCH (08:35)
[2016-10-14] MEDS: TOPIRAMATE 25 MG TABLET PO SCH (08:39)
[2016-10-14] MEDS: CARVEDILOL CR 10 MG CAPSULE PO SCH (08:39)
[2016-10-14] MEDS: PANTOPRAZOLE 40 MG TABLET PO SCH (08:39)
--- NOTE | 2016-10-14 10:33 | Gastrointestinal Progress Note ---
Assessment and Plan (1) Jaundice Status: Acute Assessment and plan: This patient does not have any ductal dilatation on CT scan. The common bile duct was not well-seen and I want to double check that this is not dilated as well. Given his abnormal ductal anatomy with prior history of pancreatic cyst removal will ask for MRCP. If no ductal dilatation is noted tomorrow and liver function tests are improving will likely hold off on biopsy of the liver. Awaiting to see whether the alpha-fetoprotein level demonstrates infiltration of the liver with hepatocellular carcinoma although this would have been seen by as a liver mass typically. If there is diffuse process involving the liver such as amyloid this can also produce jaundice. I have ordered hepatitis A, B, and C panel as exposure to hepatitis A can certainly results in jaundice as could exposure to other hepatitis types given this patient's poor functioning with his alcoholism and cirrhosis. We may end up having to do a liver biopsy but will await these studies first and confirm that there is no ductal dilatation with the MRCP. 10/12/16--The patient had some laboratories done yesterday. Although this is likely to be alcoholic cirrhosis and was not sure there was no complicating secondary process involved. Bilirubin is down from 20.2-->14.9 with normalization of the alkaline phosphatase and a direct bilirubin of 11.7. With hydration the albumin is down to 1.3. INR is 2.2, these numbers along with the serum sodium of 142 and a creatinine 1.0 yields a meld score currently of 25. Recall that this patient would need to be abstinent from alcohol for 6 months to be considered for liver transplant. MRCP is pending for today to further define ductal anatomy and look for the common bile duct which was not well identified on CT scan considering the high direct bilirubin fraction. 10/13/16--patient does not have any evidence of viral hepatitis, hemochromatosis , alpha-1 antitrypsin deficiency, or autoimmune hepatitis. It will be helpful to get a liver biopsy however patient does not wish to hang around or exposed himself to the risk required to obtain this piece of tissue. Note that with his ascites this would require a transjugular liver biopsy in order to be able to accomplish. I think this would be important for excluding an infiltrative process such as amyloid and/or widely disseminated cancer/infection-- I still feel myself that this is related to the patient's earlier alcohol intake or perhaps drug exposure remains in the differential. The MRCP was not particularly helpful to look at the common bile duct but did reassure us that there was no masses within the pancreas head and liver and confirmed that there was no ductal dilatation within the liver itself. After discussion with the patient I think it is reasonable to obtain a "first available" appointment with [facility] hepatology group in order to discuss his situation. We should make available copy of his records to keep his redraws and rescan at a minimum. He could potentially be discharged tomorrow with this follow-up. Unfortunately there is little else that I have to offer. This patient does not require ERCP or stenting. He was advised to eat multiple small meals during the day and avoid salt-containing products, try and keep his protein intake to 60 g of protein or less. He might benefit from dietary teaching on this. He can also follow-up from my clinic but I would like to see with [facility] has to suggest prior to seeing him back. I have a feeling that we will see him more expeditiously if they know what his bilirubin has increased to. 10/14/16--Tumor markers have returned now and appear to be relatively normal--> AFP 3.5 (0-8) and CA 19-9 26.6 (0-37). At this point the patient would likely do best to see a adult specialist. He has read about going to [facility] and would like actually to go to [facility] either in transfer or with expedited outpatient follow -up. Again he would need a transjugular liver biopsy in order to establish the exact diagnosis. His bilirubin has increased back up to 18.2 milligrams per deciliter. Most of this is direct despite the lack of ductal dilatation. Unfortunately the patient is only 1 month out from his alcohol intake and would likely need 6 months of sobriety in order to qualify for liver transplant. There is no indication that a ERCP would help this patient given the lack of ductal dilatation in the face of this very high bilirubin. We are checking today's ammonia level. The patient's Maddrey's discriminant function score is 79.4 and thus being greater than 32 points he might benefit from prednisolone 40 mg used x 28 days. The bilirubin needs to be checked in a week to see if he is benefiting from this medication. The patient certainly does not seem encephalopathic. Current Visit: Yes (2) Alcoholic cirrhosis of liver with ascites Status: Acute Assessment and plan: This patient has an elevated MCV consistent with his underlying cirrhosis and alcohol use until recently. I believe that he was clearly minimizing the amount of alcohol he is drinking characterizing this is only 8 drinks per day and discontinued some 1 month ago. With simple improvement of his nutrition his bilirubin is actually already come down from 20 mg/dL down to 15 and I expect with better nutrition this may improve rapidly as well. He likely has a starvation component and difficulty with clearing the bilirubin as a result of lack of nutrition. There is no elevated white blood cell count and I do not believe the septic cholestasis, we are looking for hemochromatosis, alpha-1 antitrypsin deficiency, viral hepatitis and autoimmune hepatitis as well. 10/12/16--this patient does not appear to have hemochromatosis, the rest of these laboratories are pending. He should continue to eat to replace his albumin. If he becomes quite edematous I might consider an albumin infusion at least in the short-term. We also need to consider doing a liver biopsy depending on the results of the MRCP. He might benefit from fresh frozen plasma prior to the biopsy if he requires one, I will try some vitamin K to see if this corrects him first. 10/13/16--viral hepatitis titers are negative as is the MADAN. Please see above for my suggestions as far as referral to [facility]. The patient does not want to stay here and have a transjugular liver biopsy which would be the next step I would suggest. 10/14/16--The patient has reconsidered and wishes to consider transfer to [facility] for hepatology evaluation. As noted above we are starting him on some prednisolone today to see if this helps out with his bilirubin. I feel like the next step would be a transjugular liver biopsy but in the interim we will continue to follow his bilirubin. Will adjust his diuretics at this time. Start spironolactone 50 mg and 20 mg of Lasix--recheck liver function tests and daily weights as well as the BNP tomorrow. Current Visit: Yes (3) Secondary pancreatic insufficiency Status: Acute Assessment and plan: This was diagnosis Dr. Narayanan made some time ago and place the patient on Creon patient was last given this medication from our clinic back in 2010. Apparently he takes suboptimal doses of this should likely be on at least 3 times as much as he currently takes. This would usually present with diarrhea and malabsorption and so we will continue to watch him as he improves his p.o. intake. 10/12/16--if this patient develops diarrhea with his meals will likely add some pancreatolipase to his regimen. It would not surprise me if he had food malabsorption as this was 1 of his symptoms when he saw Dr. Narayanan in the past in 2010. 10/13/16--still no diarrhea but the patient is not eating much either. I would add pancreatic enzymes back the patient developed malabsorption diarrhea, with these enzymes titrated to effect. 10/14/16--Continue to observe for diarrhea, currently with a cholestyramine the patient is having constipation issues and bloating. Current Visit: Yes (4) Macrocytic anemia Status: Acute Assessment and plan: This finding probably has a variety of etiologies some secondary to the alcohol intake but also some from nutritional losses and perhaps from removal of some of the stomach resulting in a B12 deficiency. Will check B12 levels now for confirmation. We may initiate parenteral shots if needed. 10/12/16--The patient's B12 is completely normal. The macrocytosis is likely due to ethanol ingestion and probably cirrhosis. 10/13/16-- Suggest following this over time. 10/14/16--Will recheck the CBC tomorrow if the patient is still here. Current Visit: Yes Gastroenterology - PN: Subj Interval history: The patient states that he had a great deal of abdominal pain last night although his abdomen does not feel taunt he is reaccumulating his ascites at this point. His bilirubin has once again started to rise and is currently up from 14.9 2 days ago to 18.2 milligrams per deciliter now (previously as high as 20.2). He feels uncomfortable but does not appear to be at all encephalopathic. We have discussed options on where to go and he is reconsidered [facility] and decided on oxygen or as he has a daughter who lives locally there in [place]. We also discussed getting a liver biopsy and unfortunately this would require transjugular approach which might be better handled at [facility] where they can run the pathology locally. Exam (Progress Note) - Constitutional Vitals: Period Temp Pulse Resp BP Sys/Miller Pulse Ox Last 24 Hr 97.1 F-98.3 F 69-89 16-20 105-132/61-74 92-100 General appearance: mild distress - Head Head exam: Present: normocephalic - Eye Eye exam: Present: EOMI, scleral icterus - ENT ENT exam: Present: normal exam - Respiratory Respiratory exam: Present: clear to auscultation bilaterally. Absent: rhonchi, stridor, wheezes - GI/Abdominal GI/Abdominal exam: Present: ascites, distended, hypoactive bowel sounds, tenderness (Diffuse abdominal tenderness noted), soft. Absent: guarding, rebound - Extremities Exam Extremities exam: Absent: edema - Neurological Exam Neurological exam: Present: alert, oriented X3 - Psychiatric Psychiatric exam: Present: normal affect, normal mood, anxious - Skin Skin exam: Present: warm Results - Labs CBC & BMP: 10/11/16 13:48 10/14/16 02:00
[2016-10-14] MEDS ORDERED: prednisoLONE 5 MG TABLET PO SCH (11:20)
[2016-10-14 11:47] VITALS: BP 133/66
--- NOTE | 2016-10-14 13:18 | Discharge Summary ---
Diagnosis - Discharge Diagnosis (1) Jaundice Status: Acute (2) Atrial arrhythmia Status: Chronic (3) Alcohol abuse Status: Chronic Discharge Plan - Discharge Medications No Action Omeprazole [Prilosec] 20 mg PO DAILY Topiramate 1 - 2 tablet PO BEDTIME Aspirin [Ecotrin] 81 mg PO DAILY Clorazepate [Tranxene] 15 mg PO TID PRN PRN Reason: Anxiety Carvedilol [Carvedilol] 3.125 mg PO BID Sucralfate [Sucralfate] 1 gm PO QID Docusate/Senna 50-8.6 [Senokot S] 1 tablet PO DAILY Polycarbophil [Fibercon] 1,250 mg PO DAILY Multivitamin (Centrum) [Centrum Tab] 1 tablet PO DAILY [place]-3S/Dha/Epa/Fish Oil [Fish Oil 1,200 mg Softgel] 1 each PO DAILY Fexofenadine [Sue] 180 mg PO DAILY PRN PRN Reason: Allergy Symptoms Super Beta Prostate 1 capsule PO DAILY Prevagen 1 capsule PO DAILY - Follow Up or Referral - Forms/Instructions Exam - Constitutional Vitals: Period Temp Pulse Resp BP Sys/Miller Pulse Ox Last 24 Hr 97.2 F-98.3 F 73-89 16-20 105-133/61-74 92-100 Discharge Results Procedures and tests throughout hospitalization: Pending Orders 10/10/16 16:40 Blood Culture Stat 10/11/16 13:10 Albumin,Peritoneal Fluid Stat Amylase,Peritoneal Fluid Stat Glucose,Peritoneal Fluid Stat Total Protein,Peritoneal Fluid Stat 10/14/16 10:52 Ammonia Routine 10/15/16 04:00 Ammonia IN AM BMP w/ Mg [Basic Metabolic Panel w/Mg] IN AM CMP [Comprehensive Metabolic Panel] IN AM Comp Blood Count Auto Diff IN AM LFT [Hepatic (Liver) Panel] IN AM 10/16/16 04:00 Ammonia IN AM CMP [Comprehensive Metabolic Panel] IN AM Labs on day of discharge: Labs from last 24 hours 10/14/16 10/12/16 02:00 03:41 Sodium 141 Potassium 4.3 Chloride 109 H Carbon Dioxide 22 Anion Gap 14.3 BUN 8 Creatinine 1.20 GFR Calculation 71 BUN/Creatinine Ratio 6.00 Glucose 109 H Calculated Osmolality 279.3 Calcium 8.0 L Total Bilirubin 18.20 H* AST 103 H ALT 38 Alkaline Phosphatase 104 Total Protein 5.2 L Albumin 1.4 L Globulin 3.8 H Albumin/Globulin Ratio 0.3 L [id number] 133 Preliminary micro results at discharge 10/10/16 16:40 Blood Culture - Preliminary Blood No growth at 3 days 10/10/16 16:40 Blood Culture - Preliminary Blood No growth at 3 days DS: Provider Date of admission: 10/10/16 16:02 Primary care physician: . No PCP Attending physician on admission: Anshul Palm DO Consults: 10/10/16 16:23 Consult to Physician [CONS] Routine Comment: ascites, jaundice, severe hyperbilirubinemia Consulting Provider: Reg Moe Consulting Provider Notified: Yes When should Consulting Provider be notified: Now Consult to Specialist Group: Gastroenterology When should Consulting Provider be notified: In am Person Notified: dr. moe Date Notified: 10/11/16 Time Notified: 07:01 Consult Notification Comment: barbara called with consult and room number Discharging clinician: Shruthi Cheung MD
--- NOTE | 2016-10-14 13:31 | Discharge Summary ---
Hospital Course - Hospital Course Hospital Course: 76-year-old male with long-standing alcohol dependence. He states he usually drinks 3-4 bourbon drinks daily. His last drink was about 4 weeks ago. Apparently he has had pancreatic biopsy/cyst removal at [facility] which he stated was negative for malignancy. He now has severe hyperbilirubinemia with jaundice. His CT showed ascites and residual soft tissue fullness of the pancreatic head. He was admitted to the hospitalist service and GI service was consulted. He required abdominal paracentesis with drainage of about 2 L of fluid his total bilirubin level has been going up and is currently around 18 tumor markers have been unremarkable. He did not have encephalopathy. GSR was Dr. Moe recommended transferring to [facility] for a higher level of care and consideration of a transjugular liver biopsy. I discussed that with the patient and his family and they were in agreement to transfer the patient to watch him if he is accepted a consult request was placed to [facility] and he has been accepted for a high level of care for his worsening jaundice. Discharge arrangements are being made and a copy of chart will accompanying the patient patient is now in a stable condition to be transferred to [facility] for higher level of care. - Time spent with patient Time with patient DS: Greater than 30 minutes (35 minutes) Diagnosis - Discharge Diagnosis (1) Jaundice Status: Acute (2) Atrial arrhythmia Status: Chronic (3) Alcohol abuse Status: Chronic (4) Alcoholic hepatitis with ascites Status: Acute Discharge Plan - Discharge Data Disposition: Disch/Xfer-[facility] Term Hos Condition at Discharge: Stable Discharge Diet: regular diet Activity: resume usual activities as tolerated Hygiene: no restrictions Weight Bearing at Discharge: full weight bearing Driving: not until seen by doctor - Discharge Medications New Albuterol/Ipratropium Neb [Duoneb] 3 ml RESP TX RT Q6H WA Carvedilol Cr [Coreg CR] 10 mg PO DAILY capsule Colestipol [Colestid] 4 gm PO BID tablet Dronedarone [Multaq] 400 mg PO BID tablet Furosemide Tab [Lasix Tab] 20 mg PO DAILY tablet Lipase/Protease/Amylase [Creon 12,000 Units] 12,000 unit PO TID W/MEALS Ondansetron Inj [Zofran Inj] 4 mg IV Q4H PRN vial PRN Reason: Nausea Pantoprazole Tab [Protonix Tab] 40 mg PO DAILY tablet Polyethylene Glycol Powder [Miralax] 17 gm PO BID prednisoLONE TAB [prednisoLONE Tab] 40 mg PO DAILY tablet Topiramate [Topamax] 25 mg PO BID tablet Bisacodyl Tab [Dulcolax Tab] 10 mg PO DAILY PRN tablet PRN Reason: Constipation HYDROcodone/ACETAMIN 5-325 [[place] 5-325] 1 tablet PO Q4H PRN tablet PRN Reason: Pain Mild (1-3) Spironolactone [Aldactone] 50 mg PO DAILY tablet Continue Omeprazole [Prilosec] 20 mg PO DAILY Topiramate 1 - 2 tablet PO BEDTIME Clorazepate [Tranxene] 15 mg PO TID PRN PRN Reason: Anxiety Carvedilol 3.125 mg PO BID Sucralfate 1 gm PO QID Docusate/Senna 50-8.6 [Senokot S] 1 tablet PO DAILY Polycarbophil [Fibercon] 1,250 mg PO DAILY Multivitamin (Centrum) [Centrum Tab] 1 tablet PO DAILY [place]-3S/Dha/Epa/Fish Oil [Fish Oil 1,200 mg Softgel] 1 each PO DAILY Fexofenadine [Sue] 180 mg PO DAILY PRN PRN Reason: Allergy Symptoms Discontinued Aspirin [Ecotrin] 81 mg PO DAILY Super Beta Prostate 1 capsule PO DAILY Prevagen 1 capsule PO DAILY - Follow Up or Referral - Forms/Instructions Exam - Constitutional Vitals: Period Temp Pulse Resp BP Sys/Miller Pulse Ox Last 24 Hr 97.2 F-98.3 F 73-89 16-20 105-133/61-74 92-100 General appearance: no acute distress - Head Head exam: Present: normal inspection, normocephalic - Eye Eye exam: Present: EOMI Pupils: Present: REY - ENT ENT exam: Present: normal exam - Neck Neck exam: Present: normal inspection - Respiratory Respiratory exam: Present: clear to auscultation bilaterally - Cardiovascular Cardiovascular exam: Present: regular rate and rhythm - GI/Abdominal GI/Abdominal exam: Present: ascites, soft - Extremities Exam Extremities exam: Present: normal inspection, normal capillary refill - Neurological Exam Neurological exam: Present: alert, oriented X3 - Psychiatric Psychiatric exam: Present: normal affect, normal mood - Skin Skin exam: Present: normal color, warm Discharge Results Procedures and tests throughout hospitalization: Pending Orders 10/10/16 16:40 Blood Culture Stat 10/11/16 13:10 Albumin,Peritoneal Fluid Stat Amylase,Peritoneal Fluid Stat Glucose,Peritoneal Fluid Stat Total Protein,Peritoneal Fluid Stat 10/14/16 10:52 Ammonia Routine 10/15/16 04:00 Ammonia IN AM BMP w/ Mg [Basic Metabolic Panel w/Mg] IN AM CMP [Comprehensive Metabolic Panel] IN AM Comp Blood Count Auto Diff IN AM LFT [Hepatic (Liver) Panel] IN AM 10/16/16 04:00 Ammonia IN AM CMP [Comprehensive Metabolic Panel] IN AM Labs on day of discharge: Labs from last 24 hours 10/14/16 10/12/16 02:00 03:41 Sodium 141 Potassium 4.3 Chloride 109 H Carbon Dioxide 22 Anion Gap 14.3 BUN 8 Creatinine 1.20 GFR Calculation 71 BUN/Creatinine Ratio 6.00 Glucose 109 H Calculated Osmolality 279.3 Calcium 8.0 L Total Bilirubin 18.20 H* AST 103 H ALT 38 Alkaline Phosphatase 104 Total Protein 5.2 L Albumin 1.4 L Globulin 3.8 H Albumin/Globulin Ratio 0.3 L [id number] 133 Preliminary micro results at discharge 10/10/16 16:40 Blood Culture - Preliminary Blood No growth at 3 days 10/10/16 16:40 Blood Culture - Preliminary Blood No growth at 3 days DS: Provider Date of admission: 10/10/16 16:02 Primary care physician: . No PCP Attending physician on admission: Anshul Palm DO Consults: 10/10/16 16:23 Consult to Physician [CONS] Routine Comment: ascites, jaundice, severe hyperbilirubinemia Consulting Provider: Reg Moe Consulting Provider Notified: Yes When should Consulting Provider be notified: Now Consult to Specialist Group: Gastroenterology When should Consulting Provider be notified: In am Person Notified: dr. moe Date Notified: 10/11/16 Time Notified: 07:01 Consult Notification Comment: barbara called with consult and room number Discharging clinician: Shruthi Cheung MD
[2016-10-15] MEDS ORDERED: FUROSEMIDE 20 MG TABLET PO SCH (09:00)
[2016-10-15] MEDS ORDERED: prednisoLONE 5 MG TABLET PO SCH (09:00)
[2016-10-15] MEDS ORDERED: SPIRONOLACTONE 50 MG TABLET PO SCH (09:00)
== END 2016-10-14 15:20 | disposition hospice, home (50) | DRG 433 ==
LOC: N.ED 11:30 → N.3E 16:01 → SUATTDRO 16:02 → N.EDINP 16:02 → N.3E 17:34
PROVIDERS: ADMIT Internal Medicine; ATTEND Hospitalist